=== PATIENT | female | born 1990 | race American Indian/Alaskan Native ===

== ENCOUNTER 2018-10-02 20:45 | Emergency (ER) | payer MEDICAID ==
--- NOTE | 2018-10-02 20:57 | EDM.PDOC ---
ED HPI GENERAL MEDICAL PROBLEM - General Chief Complaint: Neck Problem Stated Complaint: NECK PAIN Time Seen by Provider: 10/02/18 20:53 Source of Information: Reports: Patient History Limitations: Reports: No Limitations - History of Present Illness INITIAL COMMENTS - FREE TEXT/NARRATIVE: HISTORY AND PHYSICAL: History of present illness: Patient is a 28-year-old female who presents to the emergency room with complaints of generalized neck pain. She states she has had chronic neck pain over the past 7 years which "comes and goes" with physical activity. She denies any injury, trauma or falls. She states over the span of 7 years she usually is seen in the emergency room for treatment of her pain. In the past she has taken narcotic pain medications and muscle relaxers for short bursts, and usually the pain resolves with rest and medication. Reports that she has never had any imaging of her cervical spine. She denies any headache, change in vision, numbness or tingling to her distal extremities. Denies any fever, chills, chest pain, shortness of breath or cough. Denies any abdominal pain, nausea, vomiting, diarrhea or constipation. Denies any chance of . Review of systems: As per history of present illness and below otherwise all systems reviewed and negative. Past medical history: As per history of present illness and as reviewed below otherwise noncontributory. Surgical history: As per history of present illness and as reviewed below otherwise noncontributory. Social history: See social history for further information Family history: As per history of present illness and as reviewed below otherwise noncontributory. Physical exam: General: Well-developed and well-nourished 28-year-old female. Alert and oriented. Nontoxic appearing and in no acute distress. HEENT: Atraumatic, normocephalic, pupils equal and reactive bilaterally, negative for conjunctival pallor or scleral icterus, mucous membranes moist, TMs normal bilaterally, throat clear, neck supple, nontender, trachea midline. No drooling or trismus noted. No meningeal signs. No hot potato voice noted. Lungs: Clear to auscultation, breath sounds equal bilaterally, chest nontender. Heart: S1S2, regular rate and rhythm without overt murmur Abdomen: Soft, nondistended, nontender. Pelvis: Stable nontender. Genitourinary: Deferred. Rectal: Deferred. Skin: Intact, warm, dry. No lesions or rashes noted. Extremities: Atraumatic, moves all, negative for cords or calf pain. Neurovascular unremarkable. C-spine/Back: No pinpoint vertebral tenderness upon palpation. No crepitus, step -offs or obvious deformities. She is fully ambulatory into the emergency room without any difficulty or deficits. Bilateral muscular tenderness to the trapezius muscles. Denies any numbness or tingling to her distal extremities. Denies any urinary or fecal incontinence. Neuro: Awake, alert, oriented. Cranial nerves II through XII unremarkable. Cerebellum unremarkable. Motor and sensory unremarkable throughout. Exam nonfocal. Notes: We discussed imaging, she states that she has never had an x-ray or CT done in the past. We'll do a C-spine x-ray at this time. She does have a family member at bedside who will drive, Norflex and Toradol given IM. No acute findings on x-ray. This information was shared with the patient. Encouraged her to establish care with a primary care provider and she states this pain is chronic. Supportive care measures were reviewed and discussed. She denies any further questions or concerns at this time. Will discharge to home with family member Diagnostics: Cervical spine x-ray Therapeutics: Norflex, Toradol Prescription: Flexeril Diclofenac Impression: Neck pain, acute on chronic Plan: 1. Gentle stretching and heat to the area. 2. Tylenol and/or Ibuprofen as needed for pain. 3. Please establish care with a primary care provider for further evaluation and management of your chronic neck pain. I would like to follow up in the next 1-2 days. Return to the ED as needed and as discussed. Definitive disposition and diagnosis as appropriate pending reevaluation and review of above. Neck Pain Score (Numeric/FACES): 10 - Related Data Allergies Allergy/AdvReac Type Severity Reaction Status Date / Time No Known Allergies Allergy Verified 10/02/18 21:01 Home Meds: Home Meds . [No Known Home Meds] 09/11/18 [History] Past Medical History - Past Surgical History Female Surgical History: Reports: Tubal Ligation Social & Family History - Family History Family Medical History: Noncontributory ED ROS GENERAL - Review of Systems Review Of Systems: ROS reveals no pertinent complaints other than HPI. ED EXAM, UPPER BACK/NECK PAIN - Physical Exam Exam: See Below (See dictation) Course - Vital Signs Last Recorded V/S: Last Vital Signs Temp 98.7 F 10/02/18 21:01 Pulse 70 10/02/18 21:01 Resp 16 10/02/18 21:01 BP 117/75 10/02/18 21:01 Pulse Ox 98 10/02/18 21:01 - Orders/Labs/Meds Orders: Active Orders 24 hr Category Date Time Status Cervical Spine 2V or 3V [CR] Stat Exams 10/02/18 21:06 Taken Meds: Medications Discontinued Medications Generic Name Dose Route Start Last Admin Trade Name Freq PRN Reason Stop Dose Admin Ketorolac Tromethamine 60 mg 10/02/18 21:06 Toradol IM 10/02/18 21:07 ONETIME ONE Orphenadrine Citrate 60 mg 10/02/18 21:06 Norflex IM 10/02/18 21:07 NOW STA Departure - Departure Time of Disposition: 21:32 Disposition: Home, Self-Care 01 Clinical Impression: Neck pain - Discharge Information Instructions: Muscle Strain, [id number] Referrals: Faustina Coley MD [Primary Care Provider] - Forms: ED Department Discharge Additional Instructions: The following information is given to patients seen in the emergency department who are being discharged to home. This information is to outline your options for follow-up care. We provide all patients seen in our emergency department with a follow-up referral. The need for follow-up, as well as the timing and circumstances, are variable depending upon the specifics of your emergency department visit. If you don't have a primary care physician on staff, we will provide you with a referral. We always advise you to contact your personal physician following an emergency department visit to inform them of the circumstance of the visit and for follow-up with them and/or the need for any referrals to a consulting specialist. The emergency department will also refer you to a specialist when appropriate. This referral assures that you have the opportunity for follow-up care with a specialist. All of these measure are taken in an effort to provide you with optimal care, which includes your follow-up. Under all circumstances we always encourage you to contact your private physician who remains a resource for coordinating your care. When calling for follow-up care, please make the office aware that this follow-up is from your recent emergency room visit. If for any reason you are refused follow-up, please contact the [facility] Emergency Department at and asked to speak to the emergency department charge nurse. [facility] [address] [place] [address] [facility] [address] [place] [id number] 1. Gentle stretching and heat to the area. 2. Tylenol and/or Ibuprofen as needed for pain. 3. Please establish care with a primary care provider for further evaluation and management of your chronic neck pain. I would like to follow up in the next 1-2 days. Return to the ED as needed and as discussed. - My Orders Last 24 Hours: My Active Orders 10/02/18 21:06 Cervical Spine 2V or 3V [CR] Stat - Assessment/Plan Last 24 Hours: My Active Orders 10/02/18 21:06 Cervical Spine 2V or 3V [CR] Stat
[2018-10-02] MEDS ORDERED: Ketorolac 60 MG/2 ML SDV IM ONE (21:06)
--- NOTE | 2018-10-02 22:19 | CR ---
INDICATION: Chronic neck pain. COMPARISON: None available. FINDINGS: The cervical spine was examined with AP, lateral and open mouth views for a total of three views. There is straightening of the cervical spine which may be the result of muscular spasm or positioning for the examination. There is also slight tilting of the head toward the left which raises the possibility of mild left torticollis. The cervical vertebral bodies and disc spaces are normal in height. The vertebral bodies are in anatomic alignment with no sign of fracture or subluxation. The prevertebral soft tissues are normal in appearance with no sign of swelling. The airway structures are normal in appearance. IMPRESSION: STRAIGHTENING OF THE CERVICAL SPINE WHICH MAY BE THE RESULT OF MUSCULAR SPASM OR POSITIONING FOR THE EXAMINATION. SLIGHT TILTING OF THE HEAD TOWARD THE LEFT, POSSIBLE MILD LEFT TORTICOLLIS. OTHERWISE NORMAL CERVICAL SPINE THREE VIEWS. Dictated by Ernie Meraz MD @ Oct 02 2018 10:16PM Signed by Dr. Ernie Meraz @ Oct 02 2018 10:17PM
== END 2018-10-02 22:16 | disposition home or self-care (01) ==
LOC: MW.ED 20:45
DX: M54.2 Cervicalgia (principal); G89.29 Other chronic pain; Z98.51 Tubal ligation status
CPT/HCPCS: 72040; 96372; 96374; 99283; J1885; J2360

== ENCOUNTER 2019-01-11 12:49 | Emergency (ER) | payer MEDICAID ==
--- NOTE | 2019-01-11 13:34 | EDM.PDOC ---
ED HPI GENERAL MEDICAL PROBLEM - General Chief Complaint: Genitourinary Problem Stated Complaint: UTI Time Seen by Provider: 01/11/19 12:55 - History of Present Illness INITIAL COMMENTS - FREE TEXT/NARRATIVE: HISTORY AND PHYSICAL: History of present illness: Patient is a 28-year-old female who follows at [facility] and presents with complaints of right lower back pain and thinking she has a UTI that started this morning. The patient denies any dysuria frequency or urgency but has had 2 UTIs in the past and said that she did not have any of the typical symptoms. She said that she does have discomfort which is what she is experiencing now. The patient says that she gets periods every month and has a bilateral tubal ligation and denies . She's never had no ovarian cysts and has no vaginal discharge or bleeding currently and she has no abdominal pain or pelvic pain anteriorly. She has no true flank pain but points to her right lower back area as the area of her discomfort. She is here specifically asking for UTI testing. She had told triage that she wanted testing for STDs which I did offer her via urine and she declines at this time. She has not had any nausea vomiting or diarrhea Review of systems: As per history of present illness and below otherwise all systems reviewed and negative. Past medical history: As per history of present illness and as reviewed below otherwise noncontributory. Surgical history: As per history of present illness and as reviewed below otherwise noncontributory. Social history: No reported history of drug or alcohol abuse. Family history: As per history of present illness and as reviewed below otherwise noncontributory. Physical exam: General: Well-developed well-nourished female who is nontoxic and vital signs were noted by me HEENT: Atraumatic, normocephalic,, negative for conjunctival pallor or scleral icterus, mucous membranes moist, throat clear, neck supple, nontender, trachea midline. Lungs: Clear to auscultation, breath sounds equal bilaterally, chest nontender. Heart: S1S2, regular in rhythm no overt murmurs Abdomen: Soft, nondistended, nontender. NABS. Negative for costovertebral tenderness. Pelvis: Stable nontender. Genitourinary: Deferred. Rectal: Deferred. Extremities: Atraumatic,full range of motion Neurovascular unremarkable. Neuro: Awake, alert, oriented. Cranial nerves II through XII unremarkable. Cerebellum unremarkable. Motor and sensory unremarkable throughout. Exam nonfocal. Diagnostics: UA with reflex Therapeutics: I discussed with the patient the negative UA and she again indicates her pain as the right lower back area as his origin radiating up slightly but not completely to the flank. She now tells me that it started after she had sexual intercourse but she's had no nausea or vomiting no vaginal discharge or bleeding. At this point I have offered her a lab evaluation as well as a pelvic ultrasound to rule out a ruptured ovarian cyst or ovarian torsion and if that is negative then rule out appendicitis with a possible CAT scan. Initially she wanted to do just the ultrasound and now she does not want to do any of these tests and would like to go home and see if the pain resolves on its own and she will return here if it does not. The patient does have a history of a bilateral tubal ligation. Impression: Right lower back pain, etiology unclear Definitive disposition and diagnosis as appropriate pending reevaluation and review of above. Right Lower Abdominal Pain Score (Numeric/FACES): 5 - Related Data Allergies Allergy/AdvReac Type Severity Reaction Status Date / Time No Known Allergies Allergy Verified 10/02/18 21:01 Home Meds: Home Meds . [No Known Home Meds] 09/11/18 [History] Past Medical History HEENT History: Reports: None Cardiovascular History: Reports: None Respiratory History: Reports: None Gastrointestinal History: Reports: None Genitourinary History: Reports: None [employer] History: Reports: Musculoskeletal History: Reports: None Neurological History: Reports: None Psychiatric History: Reports: None Endocrine/Metabolic History: Reports: None Hematologic History: Reports: None Immunologic History: Reports: None Oncologic (Cancer) History: Reports: None Dermatologic History: Reports: None - Infectious Disease History Infectious Disease History: Reports: None - Past Surgical History Head Surgeries/Procedures: Reports: None Female Surgical History: Reports: Tubal Ligation Social & Family History - Family History Family Medical History: Noncontributory - Tobacco Use Smoking Status *Q: Current Every Day Smoker Years of Tobacco use: 10 Packs/Tins Daily: 0.5 - Caffeine Use Caffeine Use: Reports: Coffee, Energy Drinks, Soda, Tea - Recreational Drug Use Recreational Drug Use: Yes Recreational Drug Type: Reports: Cocaine Recreational Drug Use Frequency: Socially ED ROS GENERAL - Review of Systems Review Of Systems: ROS reveals no pertinent complaints other than HPI. ED EXAM, GENERAL - Physical Exam Exam: See Below (See dictation) Course - Vital Signs Last Recorded V/S: Last Vital Signs Temp 35.5 C 01/11/19 13:01 Pulse 61 01/11/19 13:01 Resp 16 01/11/19 13:01 BP 94/56 L 01/11/19 13:01 Pulse Ox 97 01/11/19 13:01 - Orders/Labs/Meds Labs: Laboratory Tests 01/11/19 Range/Units 13:17 Urine Color YELLOW Urine Appearance CLEAR Urine pH 7.5 (5.0-8.0) Ur Specific [place] 1.020 (1.001-1.035) Urine Protein NEGATIVE (NEGATIVE) mg/dL Urine Glucose (UA) NEGATIVE (NEGATIVE) mg/dL Urine Ketones NEGATIVE (NEGATIVE) mg/dL Urine Occult Blood NEGATIVE (NEGATIVE) Urine Nitrite NEGATIVE (NEGATIVE) Urine Bilirubin NEGATIVE (NEGATIVE) Urine Urobilinogen 0.2 (<2.0) EU/dL Ur Leukocyte Esterase NEGATIVE (NEGATIVE) Departure - Departure Time of Disposition: 13:47 Disposition: Home, Self-Care 01 Condition: Good Clinical Impression: Right low back pain Qualifiers: Chronicity: acute Sciatica presence: without sciatica Qualified Code(s): M54.5 - Low back pain - Discharge Information Referrals: PCP,Unknown [Primary Care Provider] - Forms: ED Department Discharge Additional Instructions: The following information is given to patients seen in the emergency department who are being discharged to home. This information is to outline your options for follow-up care. We provide all patients seen in our emergency department with a follow-up referral. The need for follow-up, as well as the timing and circumstances, are variable depending upon the specifics of your emergency department visit. If you don't have a primary care physician on staff, we will provide you with a referral. We always advise you to contact your personal physician following an emergency department visit to inform them of the circumstance of the visit and for follow-up with them and/or the need for any referrals to a consulting specialist. The emergency department will also refer you to a specialist when appropriate. This referral assures that you have the opportunity for followup care with a specialist. All of these measure are taken in an effort to provide you with optimal care, which includes your followup. Under all circumstances we always encourage you to contact your private physician who remains a resource for coordinating your care. When calling for followup care, please make the office aware that this follow-up is from your recent emergency room visit. If for any reason you are refused follow-up, please contact the [facility] emergency department at and ask to speak to the emergency department charge nurse. [address] [place] [address] . Use [id number] medications for pain management. Please contact your provider at [facility] for further care and evaluation of your symptoms and push hydration. Return to ER as needed as discussed
== END 2019-01-11 14:00 | disposition home or self-care (01) ==
LOC: MW.ED 12:49
DX: M54.5 Low back pain (principal); F17.210 Nicotine dependence, cigarettes, uncomplicated
CPT/HCPCS: 81003; 99283; 99284

== ENCOUNTER 2019-10-13 19:52 | Emergency (ER) | payer SELFPAY | END 2019-10-13 21:00 | disposition left against medical advice (07) | LOC: MW.ED 19:52 | DX: Z53.21 Procedure and treatment not carried out due to patient leaving prior to being seen by health care provider (principal) ==